=== PATIENT | male | born 1995 | race Caucasian/White ===

== ENCOUNTER 2024-10-18 21:20 | Emergency (ER) | payer SELFPAY ==
[2024-10-18 21:21] VITALS: BP 121/89; PULSE 79; RESP 14; TEMP 36.7; O2SAT 97; BMI 31.3
--- NOTE | 2024-10-18 21:39 | W.ED.DENTAL ---
HPI - Dental/Oral General: Chief complaint: Dental/Oral Stated complaint: Tooth Ache Time Seen by Provider: 10/18/24 21:22 Source: patient Mode of arrival: ambulatory Limitations: no limitations History of Present Illness: 29-year-old male states been having right lower dental pain that started this morning. He states the pains been sharp in nature he rates the pain a 5 out of 10 he denies any fevers denies any trismus denies any abscess formation. States he is here on a job does not go home till tomorrow night and is unable to see a dentist Associated symptoms: Denies fever(s) Related Data Previous Rx's ?Medication ?Instructions ?Recorded cephalexin 500 mg capsule 500 mg PO TID 7 days #21 caps 10/18/24 Allergies Allergy/AdvReac Type Severity Reaction Status Date / Time No Known Allergies Allergy Verified 10/18/24 21:29 Review of Systems Const: Denies: fever(s), chills, body aches or change in appetite ENMT: Reports: dental pain; Denies: throat pain Card: Denies: chest pain Resp: Denies: dyspnea GI: Denies: abdominal pain, nausea, vomiting or diarrhea : Denies: dysuria Musc: Denies: neck pain or back pain Skin/Breast: Denies: rash Neuro: Denies: headache(s) Physical Exam Const: COMMON NORMALS: no acute distress, patient oriented x3 and healthy appearing HENMT: COMMON NORMALS: normocephalic and atraumatic HEAD & SCALP: normocephalic and atraumatic OTHER: Tenderness over right lower molar no abscess or trismus Eye: COMMON NORMALS: conjunctivae normal CONJUNCTIVA: Yes conjunctivae normal Neck/C-Spine: COMMON NORMALS: full ROM and supple Chest: COMMONS NORMALS: normal inspection of the chest Resp: COMMON NORMALS: normal respiratory effort Cardio: COMMON NORMALS: regular rate RATE: regular rate Extremity: COMMON NORMALS: normal to inspection and full ROM Neuro: COMMON NORMALS: patient oriented x3, moves all extremities and no focal motor deficits Psych: COMMON NORMALS: mental status grossly normal, Normal thought process present and cooperative THOUGHT PROCESS: Normal thought process present Skin: COMMON NORMALS: no rashes or lesions noted and no wounds GENERAL SKIN EXAM: no rashes or lesions noted Course Vital Signs: Vital signs: Vital Signs Temperature 98.1 F 10/18/24 21:21 Pulse Rate 79 10/18/24 21:21 Respiratory Rate 14 10/18/24 21:21 Blood Pressure 121/89 10/18/24 21:21 Pulse Oximetry 97 10/18/24 21:21 MDM - Dental/Oral Medical Decision Making Patient presents here with dental pain has tenderness to right lower molar no abscess no trismus we will start him on antibiotics he is to follow-up PCP return if worsening he understands agrees to plan. 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
[2024-10-18] MEDS: cephALEXin 500 mg Capsule PO ×2 (22:45)
[2024-10-18] MEDS: cefTRIAXone 1,000 MG in water for injection-sterile 2.1 ML 2.1 MG IM (22:45)
[2024-10-18] MEDS: ibuprofen 800 mg tablet PO (22:46)
== END 2024-10-18 23:30 | disposition home or self-care (01) ==
PROVIDERS: Emergency Provider Emergency Medicine
DX: K08.89 Other specified disorders of teeth and supporting structures (principal)
CPT/HCPCS: 96372; 99284; J0696